=== PATIENT | male | born 1960 | race Two or more races ===

== ENCOUNTER 2022-12-06 21:11 | Inpatient (IN) | payer BC ==
[~2022-12-06] VITALS: Ht 170.2 cm; Wt 99.3 kg
[2022-12-06 21:30] VITALS: BP 158/98; TEMP 98.4
--- NOTE | 2022-12-06 21:30 | NUR ---
RN NOTE Received patient from [facility] via ambulance in a gurney accompanied by Debi GONZALEZ and 2 other EMT's, patient AAOx 4, in no acute distress, saturation at 99% on 4L via NC, SR on the monitor, HR is 87. IV line at L hand/wrist 20g patent and flushing well with Heparin drip infusing at 18 units/hr. Patient is continent and ambulatory. Safety measures in place, bed is locked and at lowest position, HOB elevated, call light within reach of patient. Will continue to monitor, pending eval by Dr Perez, per Dr perez continue current heparin rate.
[2022-12-06] MEDS ORDERED: HEPARIN INFUSION/D5W 500 ML IV PRN (22:00)
[2022-12-06] MEDS ORDERED: ONDANSETRON HCL/PF 4 MG/2 ML VIAL IVP PRN (22:00)
[2022-12-06] MEDS ORDERED: ACETAMINOPHEN 325 MG TABLET PO PRN (22:00)
[2022-12-06] MEDS: PANTOPRAZOLE 40 MG VIAL IV SCH (22:28)
[2022-12-07] VITALS: BP 144/95; TEMP 98.7
[2022-12-07] MEDS ORDERED: HEPARIN INFUSION/D5W 500 ML IV ONE (02:32)
--- NOTE | 2022-12-07 02:40 | NUR ---
RN NOTE Patient came with ongoing Heparin infusion at 18 ml/hr, per Dr Valle continue with current rate for now. PTT resulted 91 at 0140, per protocol, hold infusion for one hour then decrease by 3 units/kg/bm=8722 units/hr.
[2022-12-07 04:00] VITALS: BP 137/97; TEMP 98.3
[2022-12-07 06:44] LABS: BASOPHILS # (AUTO) 0.1 K/uL (0.0-0.2); BASOPHILS % (AUTO) 0.7 % (0.0-2.0); HEMATOCRIT 37 % (39-51); HEMOGLOBIN 12.8 g/dL (13.5-17.5); LYMPHOCYTES # (AUTO) 2.3 K/uL (0.8-4.8); LYMPHOCYTES % (AUTO) 28.8 % (20.0-44.0); MEAN CORPUSCULAR HGB CONC 34 g/dl (31.0-36.0); MEAN CORPUSCULAR VOLUME 88 fL (80-96); MONOCYTES # (AUTO) 0.6 K/uL (0.1-1.30); MONOCYTES % (AUTO) 6.8 % (2.0-12.0); NEUTROPHILS # (AUTO) 4.9 K/uL (1.8-8.9); NEUTROPHILS % (AUTO) 60.7 % (43.0-81.0); PLATELET COUNT (AUTO) 213 K/uL (150-450); RED BLOOD CELL COUNT(AUTO) 4.22 MIL/uL (4.5-6.0); WHITE BLOOD COUNT (AUTO) 8.1 K/uL (4.3-11.0)
[2022-12-07 07:16] LABS: CALCIUM, SERUM 8.3 mg/dL (8.5-10.1); PHOSPHORUS 3.7 mg/dL (2.5-4.9); POTASSIUM 3.6 mmol/L (3.5-5.1)
--- NOTE | 2022-12-07 07:20 | NUR ---
RN NOTES: RECEIVED PT IN BED AWAKE ALERT AND ORIENTED X 4 MOT IN ANY PAIN OR DISTRESS, RESPIRATION IS REGULAR AND EVEN,ON OXYGEN 2 LITER VIA NASAL CANNULA, HEPARIN DRIP RUNNING AT 1500 UNIT.HR, NO ACTIVE BLEEDING NOTED,ALL SAFETY MEASURES IN PLACE, CALL LIGHT WITHIN REACH, WILL MONITOR
--- NOTE | 2022-12-07 07:21 | NUR ---
Next of kin: Pepito (Son) [phone], Leigha (grand daughter) [phone]
[2022-12-07 08:00] VITALS: BP 150/91; TEMP 98.1
[2022-12-07] MEDS: ASPIRIN 81 MG TAB.CHEW PO SCH (08:57)
[2022-12-07] MEDS: PANTOPRAZOLE 40 MG VIAL IV SCH (08:57)
--- NOTE | 2022-12-07 09:21 | NUR ---
RN NOTES: ULTRASOUND DONE AT BEDSIDE THE TECH REPORTED PT IS RETAINING 1000 ML URINE WITH ENLARGED PROSTATE UNABLE TO VOID NOTIFIED DR JAREN HIKCS WITH ORDER TO INSERT QUARLES CATHETER
[2022-12-07] MEDS ORDERED: DEXTROSE 50%-WATER 50 ML DISP.SYRIN IV PRN (11:00)
[2022-12-07] MEDS: RIVAROXABAN 10 MG TABLET PO SCH ×2 (11:21→17:00)
[2022-12-07 12:00] VITALS: BP 155/101; TEMP 98.2
[2022-12-07] MEDS: BLOOD SUGAR DIAGNOSTIC 1 EACH STRIP VI SCH ×3 (12:27→21:22)
[2022-12-07] MEDS: INSULIN REGULAR, HUMAN 100 UNIT/ML 3 ML VIAL SQ PRN (12:29)
[2022-12-07 16:00] VITALS: BP 137/83; TEMP 98.3
[2022-12-07 16:32] LABS: THYROID STIMULATING HORMONE 0.628 uIU/mL (0.358-3.74)
[2022-12-07 16:50] LABS: CREATININE, URINE 271.5 MG/DL (30.0-125.0)
[2022-12-07] MEDS ORDERED: RIVAROXABAN 10 MG TABLET PO SCH (17:00)
--- NOTE | 2022-12-07 17:00 | NUR ---
RN NOTES: HELD XARELTO DUE TO HEMATURIA, PALMIRA NEWTON DNP MADE AWARE
--- NOTE | 2022-12-07 19:18 | NUR ---
PATROL OFFICER CLOSING NOTES: PT IN BED AWAKE ALERT AND ORIENTED X 4 NOT IN ANY PAIN OR DISTRESS, RESPIRATION IS REGULAR AND EVEN,ON OXYGEN 2 LITER VIA NASAL CANNULA, , NOTED WITH HEMATURIA,ENCOURAGE FLUID INTAKE TOLERATED,ALL SAFETY MEASURES IN PLACE, CALL LIGHT WITHIN REACH, ENDORSED TO CHILD CARE TEAM LEAD RN SHIRA ALEX
--- NOTE | 2022-12-07 19:20 | NUR ---
RN NOTE Report received from Lucio GONZALEZ, patient in bed, on semi sahni's, AAOx 4, in no acute distress, family at bedside,. Saturation at 97% on 2L via NC, SR on the monitor, HR is 86. IV line at L hand/wrist 20g patent and flushing well, saline locked. Brady catheter draining to a bloody output. Safety measures in place, bed is locked and at lowest position, HOB elevated, call light within reach of patient. Will continue to monitor, pending eval by Dr Perez, per Dr perez continue current heparin rate.
[2022-12-07 20:00] VITALS: BP 150/77; TEMP 99.2
[2022-12-07] MEDS: ATORVASTATIN 10 MG TABLET PO SCH (21:19)
[2022-12-07] MEDS: *INSULIN REGULAR(HUMULIN R)HUM 100 UNIT/ML VIAL SQ PRN (21:24)
[2022-12-08] VITALS: BP 158/94; TEMP 98.6
[2022-12-08 04:00] VITALS: BP 148/79; TEMP 98.4
[2022-12-08] MEDS: BLOOD SUGAR DIAGNOSTIC 1 EACH STRIP VI SCH ×4 (07:47→22:44)
[2022-12-08] MEDS: INSULIN REGULAR, HUMAN 100 UNIT/ML 3 ML VIAL SQ PRN ×3 (07:49→17:52)
[2022-12-08] MEDS: ASPIRIN 81 MG TAB.CHEW PO SCH (08:08)
[2022-12-08] MEDS: PANTOPRAZOLE 40 MG TABLET.DR PO SCH (08:09)
--- NOTE | 2022-12-08 08:30 | NUR ---
RN NOTE LEFT MESSAGE TO PALMIRA NEWTON DNP. PT IS STILL WITH HEMATURIA IF OK TO GIVE XERALTO. AWAITING FOR CALL BACK.
[2022-12-08 08:38] VITALS: BP 153/99; TEMP 98.5
--- NOTE | 2022-12-08 08:53 | NUR ---
APARTMENT HOUSE MANAGER NOTE PT IS RESTING IN BED A&O X4. NO S/S OF SOB OR DISTRESS. PT IS ON 2L NC O2 @97%. IV L HAND 20 G IS PATENT AND INTACT. 3 UNITS OF INSULIN IS GIVEN. PT IS EATING BREAKFAST WELL. PT IS REPOSITIONED AND COMFORTABLE AT THIS TIME. BED IS LOCKED AND IN LOWEST POSITION. CALL LIGHT WITH IN REACH. WILL CONTINUE TO MONITOR.
--- NOTE | 2022-12-08 10:26 | NUR ---
RN NOTE PALMIRA NEWTON DNP CALLED BACK OK TO GIVE XERALTO WITH CURRENT HEMATURIA.
[2022-12-08] MEDS: RIVAROXABAN 10 MG TABLET PO SCH ×2 (10:28→17:33)
[2022-12-08 12:00] VITALS: BP 130/87; TEMP 98.6
[2022-12-08 16:00] VITALS: BP 143/91; TEMP 98.3
[2022-12-08] MEDS ORDERED: LIDOCAINE 2% JEL UROJET 10 ML MM ONE ×2 (16:57→17:00)
[2022-12-08] MEDS ORDERED: MORPHINE SULFATE INJ 4 MG/ML DISP.SYRIN IV STA (16:57)
[2022-12-08] MEDS: LIDOCAINE VISCOUS 2% UD 15 ML UDC MM SCH (17:06)
[2022-12-08] MEDS: PHENAZOPYRIDINE HCL 200 MG TABLET PO SCH (17:38)
--- NOTE | 2022-12-08 19:36 | NUR ---
ELECTROMAGNET CRANE OPERATOR CLOSING NOTE PT IS RESTING IN BED. FAMILY IS AT BEDSIDE. PT IS EATING WELL. QUARLES IS MILD HEMATURIA. NO S/S OF PAIN. NO DISTRESS. ALL NEEDS ATTENDED. CALL LIGHT WITHIN REACH. BED IS LOCKED IN LOWEST POSITION. WILL ENDORSE CARE TO REMOTELY OPERATED VEHICLE RN.
[2022-12-08 22:00] VITALS: BP 151/115; TEMP 98.5
[2022-12-08] MEDS: ATORVASTATIN 10 MG TABLET PO SCH (22:35)
[2022-12-08] MEDS: INSULIN GLARGINE, 100 UNIT/ML CARTRIDGE SQ SCH (22:45)
[2022-12-08] MEDS: *INSULIN REGULAR(HUMULIN R)HUM 100 UNIT/ML VIAL SQ PRN (22:47)
--- NOTE | 2022-12-08 22:52 | NUR ---
RN NOTES: PT'S BLOOD SUGAR 211. 10 UNITS LANTUS AND 4 UNITS OF REGULAR INSULIN GIVEN . NO S/S OF HYPER/HYPOGLYCEMIA. WILL CONTINUE TO MONITOR
[2022-12-09] VITALS: BP 127/77; TEMP 98.5
[2022-12-09] MEDS: LIDOCAINE VISCOUS 2% UD 15 ML UDC MM SCH ×3 (01:00→16:33)
[2022-12-09 04:00] VITALS: BP 126/83; TEMP 98.3
[2022-12-09 06:17] LABS: BASOPHILS % (AUTO) 0.4 % (0.0-2.0); EOSINOPHILS % (AUTO) 2.4 % (0.0-6.0); HEMATOCRIT 39 % (39-51); HEMOGLOBIN 13.2 g/dL (13.5-17.5); LYMPHOCYTES # (AUTO) 2.3 K/uL (0.8-4.8); LYMPHOCYTES % (AUTO) 20.2 % (20.0-44.0); MEAN CORPUSCULAR HGB CONC 34 g/dl (31.0-36.0); MEAN CORPUSCULAR VOLUME 88 fL (80-96); MONOCYTES # (AUTO) 0.8 K/uL (0.1-1.30); MONOCYTES % (AUTO) 7.3 % (2.0-12.0); NEUTROPHILS # (AUTO) 7.9 K/uL (1.8-8.9); NEUTROPHILS % (AUTO) 69.7 % (43.0-81.0); PLATELET COUNT (AUTO) 222 K/uL (150-450); RED BLOOD CELL COUNT(AUTO) 4.48 MIL/uL (4.5-6.0); WHITE BLOOD COUNT (AUTO) 11.4 K/uL (4.3-11.0)
[2022-12-09 06:41] LABS: ALBUMIN 2.8 g/dL (3.4-5.0); BILIRUBIN,TOTAL 0.6 mg/dL (0.2-1.0); CALCIUM, SERUM 8.9 mg/dL (8.5-10.1); CREATININE 1.7 mg/dL (0.6-1.3); MAGNESIUM 1.6 mg/dL (1.8-2.4); PHOSPHORUS 3.8 mg/dL (2.5-4.9); POTASSIUM 3.1 mmol/L (3.5-5.1); TOTAL PROTEIN, SERUM 6.6 g/dL (6.4-8.2)
--- NOTE | 2022-12-09 06:44 | NUR ---
WINE CELLAR STOCK CLERK CLOSING NOTES PT IN BED SLEEPING COMFORTABLY. EASILY AROUSABLE, ALERT/ORIENTED X4 AND VERBALLY RESPONSIVE. S[place]OREAN SPEAKING. ON ROOM AIR AND PT TOLERATED WELL. O2 SAT 96%. IV ACCESS LT HAND #20G INTACT AND PATENT. NO S/S OF IN FILTRATIONS. NO C/O PAIN OR DISCOMFORT. NO ACUTE DISTRESS. ALL DUE MEDS GIVEN ORDERED. QUARLES IN PLACE. NOTED HEMATURIA. ALL SAFETY MEASURES IN PLACE. BED IN LOWEST POSITION AND LOCKED. SIDE RAILS UP X2, PLACE CALL LIGHT WITH IN REACH. WILL ENDORSE TO MORNING SHIFT RN.
--- NOTE | 2022-12-09 07:27 | NUR ---
ROLLED HAM LACER OPEN NOTES PT IN BED SLEEPING COMFORTABLY. EASILY AROUSABLE, ALERT/ORIENTED X4 AND VERBALLY RESPONSIVE. SAMMARINESE SPEAKING. ON ROOM AIR AND PT TOLERATED WELL. O2 SAT 96%. IV ACCESS LT HAND #20G INTACT AND PATENT. NO S/S OF IN FILTRATIONS. NO C/O PAIN OR DISCOMFORT. NO ACUTE DISTRESS. QUARLES IN PLACE. NOTED HEMATURIA. ALL SAFETY MEASURES IN PLACE. BED IN LOWEST POSITION AND LOCKED. SIDE RAILS UP X2, PLACE CALL LIGHT WITH IN REACH. WILL CONTINUE TO MONITOR
[2022-12-09] MEDS: BLOOD SUGAR DIAGNOSTIC 1 EACH STRIP VI SCH ×4 (07:34→21:25)
[2022-12-09] MEDS: INSULIN REGULAR, HUMAN 100 UNIT/ML 3 ML VIAL SQ PRN (07:36)
[2022-12-09 08:00] VITALS: BP 142/85; TEMP 98.6
[2022-12-09] MEDS: PHENAZOPYRIDINE HCL 200 MG TABLET PO SCH ×3 (08:53→16:34)
[2022-12-09] MEDS: ASPIRIN 81 MG TAB.CHEW PO SCH (08:54)
[2022-12-09] MEDS: PANTOPRAZOLE 40 MG TABLET.DR PO SCH (08:59)
[2022-12-09] MEDS ORDERED: IV NS 0.9% 1,000 ML IV PRN (09:00)
[2022-12-09] MEDS ORDERED: POTASSIUM CHLORIDE 20 MEQ TAB.PRT.SR PO ONE ×2 (09:00)
[2022-12-09] MEDS: RIVAROXABAN 10 MG TABLET PO SCH ×2 (09:04→16:37)
--- NOTE | 2022-12-09 09:04 | NUR ---
RN NOTE LIDOCAINE WASN'T ADMINISTERED FRANCISCO TO PATIENT HAS NO PAIN , NO DISCOMFORT
--- NOTE | 2022-12-09 09:43 | NUR ---
RN NOTE PATIENT DEVELOPED BLOODY URINE , DR PALMIRA Dunham NOTIFIED , AND DR RUBIO TO GIVE XARELTO
[2022-12-09] MEDS ORDERED: MAGNESIUM OXIDE 400 MG TABLET PO ONE (10:00)
[2022-12-09] MEDS: *INSULIN REGULAR(HUMULIN R)HUM 100 UNIT/ML VIAL SQ PRN ×2 (11:58→21:26)
[2022-12-09 12:06] VITALS: BP 121/89; TEMP 98
[2022-12-09] MEDS: CEFTRIAXONE 1 G in IV D5W 50 ML IV SCH (15:17)
[2022-12-09 16:00] VITALS: BP 127/86; TEMP 98.3
--- NOTE | 2022-12-09 16:33 | NUR ---
RN NOTE PATIENT REFUSED LIDOCAINE DUE TO NO PAIN OR DISCOMFORT AT THIS TIME
[2022-12-09] MEDS: OXYBUTYNIN CHLORIDE 5 MG TABLET PO SCH (18:09)
--- NOTE | 2022-12-09 19:02 | NUR ---
BOWL TURNER CLOSING NOTES PT IN BED ALERT/ORIENTED X4 AND VERBALLY RESPONSIVE. SAMI SPEAKING. ON ROOM AIR AND PT TOLERATED WELL. O2 SAT 96%. IV ACCESS LT HAND #20G INTACT AND PATENT. NO S/S OF IN FILTRATIONS. NO C/O PAIN OR DISCOMFORT. NO ACUTE DISTRESS. ALL DUE MEDS GIVEN ORDERED. QUARLES IN PLACE RED DISCOLORATION R/T PERIDIUM ,ALL SAFETY MEASURES IN PLACE. BED IN LOWEST POSITION AND LOCKED. SIDE RAILS UP X2, PLACE CALL LIGHT WITH IN REACH. WILL ENDORSE TO ASSEMBLER FINAL RN.
--- NOTE | 2022-12-09 19:48 | NUR ---
COMPRESSOR OPERATOR PORTABLE OPEN NOTES RECEIVED PT IN BED COMFORTABLY. AWAKE ALERT/ORIENTED X4 AND VERBALLY RESPONSIVE. ANGUILLAN SPEAKING. ON ROOM AIR AND PT TOLERATED WELL. IV ACCESS LT HAND #20G INTACT AND PATENT. NO S/S OF IN FILTRATIONS. NO C/O PAIN OR DISCOMFORT. NO ACUTE DISTRESS. QUARLES IN PLACE. NOTED HEMATURIA. ALL SAFETY MEASURES IN PLACE. BED IN LOWEST POSITION AND LOCKED. SIDE RAILS UP X2, PLACE CALL LIGHT WITH IN REACH. WILL CONTINUE TO MONITOR
[2022-12-09 20:55] VITALS: BP 140/93; TEMP 98.8
[2022-12-09] MEDS: ATORVASTATIN 10 MG TABLET PO SCH (21:24)
[2022-12-09] MEDS: INSULIN GLARGINE, 100 UNIT/ML CARTRIDGE SQ SCH (21:25)
--- NOTE | 2022-12-09 21:30 | NUR ---
FIELD FOREMAN NOTE PATIENT BLOOD SUGAR 217, 10 UNITS OF LANTUS GIVEN, AND 4 UNITS OF REGULAR INSULIN, NO HYPER/HYPOGLYCEMIA NOTED, WILL CONTINUE TO MONITOR
[2022-12-10] VITALS: BP 111/78; TEMP 99.2
[2022-12-10 04:00] VITALS: BP 129/83; TEMP 98.6
--- NOTE | 2022-12-10 06:48 | NUR ---
LD TEACHER CLOSING NOTES PT IN BED SLEEPING, EASILY AROUSABLE. AWAKE ALERT/ORIENTED X4 AND VERBALLY RESPONSIVE. SINGAPOREAN SPEAKING. ON ROOM AIR AND PT TOLERATED WELL. IV ACCESS LT HAND #20G INTACT AND PATENT. NO S/S OF IN FILTRATIONS. NO C/O PAIN OR DISCOMFORT. NO ACUTE DISTRESS. QUARLES IN PLACE. NOTED ORANGE COLORED URINE WITH CLOTS. ALL DUE MEDS GIVEN PER MD ORDER. ALL SAFETY MEASURES IN PLACE. BED IN LOWEST POSITION AND LOCKED. SIDE RAILS UP X2, PLACE CALL LIGHT WITH IN REACH. WILL ENDORSE ALEX TO AM SHIFT RN
[2022-12-10 06:56] LABS: BASOPHILS % (AUTO) 0.2 % (0.0-2.0); EOSINOPHILS % (AUTO) 3.4 % (0.0-6.0); HEMATOCRIT 39 % (39-51); LYMPHOCYTES # (AUTO) 1.9 K/uL (0.8-4.8); LYMPHOCYTES % (AUTO) 14.9 % (20.0-44.0); MEAN CORPUSCULAR HGB CONC 34 g/dl (31.0-36.0); MEAN CORPUSCULAR VOLUME 88 fL (80-96); MONOCYTES # (AUTO) 0.8 K/uL (0.1-1.30); MONOCYTES % (AUTO) 6.3 % (2.0-12.0); NEUTROPHILS # (AUTO) 9.8 K/uL (1.8-8.9); NEUTROPHILS % (AUTO) 75.2 % (43.0-81.0); PLATELET COUNT (AUTO) 214 K/uL (150-450)
[2022-12-10 07:26] LABS: ALBUMIN 2.7 g/dL (3.4-5.0); BILIRUBIN,TOTAL 0.5 mg/dL (0.2-1.0); CALCIUM, SERUM 8.3 mg/dL (8.5-10.1); CREATININE 1.6 mg/dL (0.6-1.3); MAGNESIUM 1.7 mg/dL (1.8-2.4); PHOSPHORUS 3.2 mg/dL (2.5-4.9); POTASSIUM 3.2 mmol/L (3.5-5.1); TOTAL PROTEIN, SERUM 6.5 g/dL (6.4-8.2)
[2022-12-10] MEDS: BLOOD SUGAR DIAGNOSTIC 1 EACH STRIP VI SCH ×3 (07:54→17:04)
[2022-12-10] MEDS: INSULIN REGULAR, HUMAN 100 UNIT/ML 3 ML VIAL SQ PRN ×2 (07:56→17:12)
[2022-12-10 08:00] VITALS: BP 130/89; TEMP 98
[2022-12-10] MEDS: RIVAROXABAN 10 MG TABLET PO SCH ×2 (08:17→17:06)
[2022-12-10] MEDS: PHENAZOPYRIDINE HCL 200 MG TABLET PO SCH ×2 (08:17→12:42)
[2022-12-10] MEDS: OXYBUTYNIN CHLORIDE 5 MG TABLET PO SCH ×3 (08:17→17:07)
[2022-12-10] MEDS: PANTOPRAZOLE 40 MG TABLET.DR PO SCH (08:17)
[2022-12-10] MEDS: ASPIRIN 81 MG TAB.CHEW PO SCH (08:17)
[2022-12-10] MEDS ORDERED: MAGNESIUM OXIDE 400 MG TABLET PO ONE (10:00)
[2022-12-10] MEDS ORDERED: POTASSIUM CHLORIDE 20 MEQ TAB.PRT.SR PO SCH (11:00)
[2022-12-10 12:00] VITALS: BP 126/89; TEMP 98.2
[2022-12-10] MEDS: CEFTRIAXONE 1 G in IV D5W 50 ML IV SCH (14:15)
[2022-12-10 16:00] VITALS: BP 113/64; TEMP 98.5
--- NOTE | 2022-12-10 18:00 | NUR ---
PATIENT'S PHONE NUMBER REQUESTED BY TATIANA SUBWAY TRAIN DRIVER TO [facility] : ANNETTE [phone] I ALREADY TEXT IT TO THE [facility]NA CABAN.
[2022-12-10] MEDS ORDERED: METF-440 PO (18:11)
[2022-12-10] MEDS ORDERED: TAMS-12 PO (18:11)
[2022-12-10] MEDS ORDERED: RIVA10TA PO (18:11)
[2022-12-10] MEDS ORDERED: ATOR10TA PO (18:11)
[2022-12-10] MEDS ORDERED: INSU100I30 SQ (18:11)
--- NOTE | 2022-12-10 19:15 | NUR ---
PATIENT DISCHARGE NOTES PATIENT DISCHARGED BY DR. ALONZO ORDER TO HOME. PATIENT AMBULATORY TAKEN TO LOBBY HIS PICKED HIM UP WITH PRIVATE CAR. ALL DISCHARGE INSTRUCTION GIVEN NEW MEDICATION INFORMED WITH SIDE EFFECT DOSE AND ROUTE, PATIENT WILL PICK THEM UP FROM [facility]. PATIENT LEFT WITH QUARLES AND [place]E CLASSIFIER TENDER TATIANA GAVE PATIENT A UROLOGIST NUMBER SO PATIENT CAN FOLLOW UP. PATIENT'S PHONE NUMBER GIVEN TO TATIANA CABAN TO MANAGE THE HOME HEALTH CARE FOR PATIENT. IV SITE LEFT HAND REMOVED. ALL HOME MEDICATIONS ARE PO. PATIENT SIGNED THE BELONGING LIST AND DISCHARGE CONSENT FORM.
[2022-12-28] MEDS ORDERED: RIVAROXABAN 10 MG TABLET PO SCH (17:00)
== END 2022-12-10 19:42 | disposition home health service (06) | DRG 175 ==
LOC: TELE1 21:11
PROVIDERS: ADMIT Nurse Practitioner Acute Care; ATTEND Nurse Practitioner Acute Care
DX: I26.99 Other pulmonary embolism without acute cor pulmonale (principal); I21.A1 Myocardial infarction type 2; N17.0 Acute kidney failure with tubular necrosis; J15.9 Unspecified bacterial pneumonia; I50.33 Acute on chronic diastolic (congestive) heart failure; J90 Pleural effusion, not elsewhere classified; N13.30 Unspecified hydronephrosis; E11.65 Type 2 diabetes mellitus with hyperglycemia; E87.6 Hypokalemia; I27.20 Pulmonary hypertension, unspecified; R33.8 Other retention of urine; Z79.01 Long term (current) use of anticoagulants; Z86.711 Personal history of pulmonary embolism; N18.9 Chronic kidney disease, unspecified; R31.9 Hematuria, unspecified; N40.1 Benign prostatic hyperplasia with lower urinary tract symptoms
CPT/HCPCS: 36415; 71045-TC; 76770-TC; 80048-TC; 80053-TC; 80061-TC; 82570-TC; 82962-TC; 83735-TC; 84100-TC; 84300-TC; 84443-TC; 84484-TC; 85025-TC; 85730-TC; 93307-TC; A4223; C9113; G0378; J0696; J1644; J1815; J2270; J3490; J7030; J7050; J7060